=== PATIENT | female | born 1950 | race Caucasian/White ===

== ENCOUNTER 2017-10-07 08:29 | Emergency (ER) | payer MEDICARE ==
[2017-10-07 09:03] VITALS: BP 149/77
--- NOTE | 2017-10-07 09:26 | ED ---
Respiratory - HPI Summary HPI Summary: Cough, congestion, sore throat for about a week. no hemoptysis or fever. Grandchildren have been sick. - History of Current Complaint Chief Complaint: UCRespiratory Stated Complaint: UPPER RESPITORY,COUGH,CHEST CONGESTION Time Seen by Provider: 10/07/17 08:41 Hx Obtained From: Patient Onset/Duration: Lasting Days, Still Present Timing: Constant Initial Severity: Mild Current Severity: Moderate Pain Intensity: 0 Character: Cough (Productive), Cough (Nonproductive) Sputum Amount: Scant Sputum Color: White Aggravating Factor(s): URI, Deep Breaths, Recumbent Position Alleviating Factor(s): Upright Position Associated Signs and Symptoms: URI, Nasal Congestion - Allergy/Home Medications Allergies/Adverse Reactions: Allergies Allergy/AdvReac Type Severity Reaction Status Date / Time diphenhydramine Allergy Severe HEART Verified 10/07/17 08:49 [From Exent] RACES, "BREATHING FIRE" Home Medications: Home Medications Calcium/Vitamin D TAB 250/125* [Oscal D TAB 250/125*] 2 tab PO DAILY 10/07/17 [ History Confirmed 10/07/17] PMH/Surg Hx/FS Hx/Imm Hx Previously Healthy: No Endocrine/Hematology History: Reports: Hx Thyroid Disease - Hypothyroidism - Surgical History Surgery Procedure, Year, and Place: , 1973, [facility] Infectious Disease History: No Infectious Disease History: Denies: Traveled Outside the [place] in Last 30 Days - Family History Known Family History: Positive: Other - Grandchildren have been sick with bronchitis and pneumonia. - Social History Lives: With Family Alcohol Use: None Substance Use Type: Reports: None Smoking Status (MU): Never Smoked Tobacco Review of Systems Positive: Sore Throat Positive: Cough All Other Systems Reviewed And Are Negative: Yes Physical Exam Triage Information Reviewed: Yes Vital Signs On Initial Exam: Initial Vitals Temp Pulse Resp BP Pulse Ox 99.4 F 94 20 149/77 97 10/07/17 08:53 10/07/17 08:53 10/07/17 08:53 10/07/17 08:53 10/07/17 08:53 Vital Signs Reviewed: Yes Appearance: Positive: Well-Appearing, No Pain Distress, Well-Nourished Skin: Positive: Warm, Dry Eyes: Positive: Normal, EOMI, Conjunctiva Clear. Negative: Conjunctiva Inflammed ENT: Positive: Pharynx normal, Pharyngeal erythema, Nasal congestion, TM bulging , Sinus tenderness. Negative: TM dull, TM red, Tonsillar swelling, Tonsillar exudate, Trismus, Uvula midline Neck: Positive: Supple, Nontender, No Lymphadenopathy Respiratory/Lung Sounds: Positive: Clear to Auscultation, Breath Sounds Present. Negative: Decreased Breath Sounds, Rales, Rhonchi, Subcutaneous Emphysema, Stridor, Tracheal Deviation, Wheezes, Unable to speak in full sentences Cardiovascular: Positive: RRR, Pulses are Symmetrical in both Upper and Lower Extremities. Negative: Murmur Abdomen Description: Positive: No Organomegaly, Soft. Negative: Distended, Guarding Musculoskeletal: Positive: Normal, Strength/ROM Intact Neurological: Positive: Normal, Sensory/Motor Intact, Alert, Oriented to Person Place, Time, CN Intact II-III Psychiatric: Positive: Normal, Affect/Mood Appropriate. Negative: Anxious Diagnostics - Vital Signs Vital Signs Temp Pulse Resp BP Pulse Ox 10/07/17 08:53 99.4 F 94 20 149/77 97 - Laboratory Lab Statement: Any lab studies that have been ordered have been reviewed, and results considered in the medical decision making process. Disposition - Differential Dx - Cardiopulmonary Differential Diagnoses - Cardiopulmonary: Bronchitis - Diagnoses Provider Diagnoses: Viral bronchitis Discharge - Sign-Out/Discharge Documenting (check all that apply): Patient Departure - Discharge Plan Condition: Good Disposition: HOME Prescriptions: Acetaminop/Codeine 30 MG TAB* [Tylenol/Codeine 30 MG TAB*] 1 tab PO BEDTIME PRN #5 tab MDD 1 PRN Reason: Cough Azithromyxin KORIN (NF) [Z-Korin (Zithromax) 250 mg tabs #6] 2 tab PO .TODAY, THEN 1 DAILY #6 tab Benzonatate CAP* [Tessalon 100 MG CAP*] 100 mg PO TID #20 cap Patient Education Materials: Upper Respiratory Infection (ED) Referrals: Jamey Haynes MD [Primary Care Provider] - If Needed - Billing Disposition and Condition Condition: GOOD Disposition: Home
== END 2017-10-07 09:40 | disposition home or self-care (01) ==
LOC: UCCORT 08:29
DX: J20.8 Acute bronchitis due to other specified organisms (principal); Z88.8 Allergy status to other drugs, medicaments and biological substances
CPT/HCPCS: 99211; G0463

== ENCOUNTER 2018-08-04 16:38 | Emergency (ER) | payer MEDICARE ==
[2018-08-04 16:53] VITALS: BP 144/69
--- NOTE | 2018-08-04 17:15 | UC ---
Respiratory Complaint HPI - HPI Summary HPI Summary: C/O cough and congestion x 2-3 days. Now having bilateral ear pain, right > left. Now getting coughing fits. - History of Current Complaint Chief Complaint: UCGeneralIllness Stated Complaint: COUGH,EARS Hx Obtained From: Patient Onset/Duration: Sudden Onset, Lasting Days - 3, Worse Since - today Timing: Constant Severity Initially: Mild Severity Currently: Moderate Pain Intensity: 7 Character: Cough: Nonproductive Alleviating Factors: Nothing Associated Signs And Symptoms: Positive: URI, Nasal Congestion - Allergies/Home Medications Allergies/Adverse Reactions: Allergies Allergy/AdvReac Type Severity Reaction Status Date / Time diphenhydramine Allergy Severe HEART Verified 08/04/18 16:53 [From Benadryl] RACES, "BREATHING FIRE" Home Medications: Home Medications Ibuprofen TAB* [Advil TAB*] 200 mg PO Q8H PRN 08/04/18 [History Confirmed ] PMH/Surg Hx/FS Hx/Imm Hx Endocrine History: Hypothyroidism - Surgical History Surgical History: Yes Surgery Procedure, Year, and Place: , 1973, [place] - Family History Known Family History: Positive: Diabetes, Other - Grandchildren have been sick with bronchitis and pneumonia. - Social History Occupation: Retired Lives: With Family Alcohol Use: None Substance Use Type: None Smoking Status (MU): Never Smoked Tobacco Household Exposure Type: Cigarettes - Immunization History Most Recent Influenza Vaccination: FALL 2013 Review of Systems All Other Systems Reviewed And Are Negative: Yes Constitutional: Positive: Fever ENT: Positive: Sore Throat, Ear Ache, Nasal Discharge Respiratory: Positive: Cough Physical Exam Triage Information Reviewed: Yes Appearance: Ill-Appearing, Pain Distress - mild, Obese Vital Signs: Initial Vital Signs Temp 98.2 F 08/04/18 16:50 Pulse 82 08/04/18 16:50 Resp 18 08/04/18 16:50 BP 144/69 08/04/18 16:50 Pulse Ox 97 08/04/18 16:50 Vital Signs Reviewed: Yes Eyes: Positive: Conjunctiva Clear ENT: Positive: Pharynx normal, Nasal congestion, TM bulging - AU, AD> with serous effusions Neck exam: Normal Respiratory: Positive: Wheezing - expiratory wheezing with cough Cardiovascular Exam: Normal Cardiovascular: Positive: RRR, No Murmur Musculoskeletal Exam: Normal Neurological Exam: Normal Psychological Exam: Normal Skin Exam: Normal Respiratory Course/Dx - Differential Dx/Diagnosis Differential Diagnosis/HQI/PQRI: Asthma, Lower Resp Infection, Sinusitis Provider Diagnosis: Upper respiratory infection with cough and congestion, Bilateral serous otitis media, Bronchospasm, acute Discharge - Sign-Out/Discharge Documenting (check all that apply): Patient Departure All imaging exams completed and their final reports reviewed: No Studies - Discharge Plan Condition: Stable Disposition: HOME Prescriptions: Amoxicillin PO (*) [Amoxicillin 875 MG (*)] 875 mg PO BID #20 tab predniSONE TAB* [Deltasone 20 MG TAB*] 60 mg PO DAILY #18 tab Patient Education Materials: Upper Respiratory Infection (ED), Bronchospasm (ED ), Prednisone (By mouth), Serous Otitis Media (ED) Referrals: Jamey Haynes MD [Primary Care Provider] - Additional Instructions: NASAL SPRAYS AND DROPS: Afrin in the PUMP/ MIST bottle (Get generic 12 hours nasal decongestant spray). Tilt your head down and look at the floor while doing a strong sniff with the spray. Decongestant nasal sprays and drops often give dramatic relief from congestion. They are often recommended for patients with sinus infection to assist with sinus drainage. Persons with high blood pressure should consult the doctor before using these nasal sprays. Afrin and Onel-Synephrine are common [id number] preparations. They should not be used for more than five days, as "rebound" congestion can occur - - the congestion flares as the drug wears off. A way of dealing with this rebound congestion problem is to medicate only one nostril each time, allowing the other nostril to recover from the medicine' s effects. When you no longer need the drug during the day, spray only one nostril each night. This helps you sleep well without severe rebound congestion. Call the doctor if you develop severe headache, palpitations, or chest pain. DO NOT FILL THE AMOXICILLIN UNLESS YOU GET WORSENING FEVERS/ CHILLS WITH THE EAR PAIN. WARM PACKS FOR THE EAR PAIN WELL. - Billing Disposition and Condition Condition: STABLE Disposition: Home
== END 2018-08-04 17:35 | disposition home or self-care (01) ==
LOC: UCCORT 16:38
DX: J06.9 Acute upper respiratory infection, unspecified (principal); H65.93 Unspecified nonsuppurative otitis media, bilateral; J20.9 Acute bronchitis, unspecified; Z77.22 Contact with and (suspected) exposure to environmental tobacco smoke (acute) (chronic)
CPT/HCPCS: 99212; G0463

== ENCOUNTER 2018-09-18 08:15 | Emergency (ER) | payer MEDICARE ==
[2018-09-18 08:34] VITALS: BP 150/73
--- NOTE | 2018-09-18 09:36 | UC ---
Respiratory Complaint HPI - HPI Summary HPI Summary: 68 yo female with cough x 4 weeks or more no fever occasionally productive hoarse sore throat at times - History of Current Complaint Chief Complaint: UCGeneralIllness Stated Complaint: CONGESTION, ST Time Seen by Provider: 09/18/18 08:59 Hx Obtained From: Patient Onset/Duration: Sudden Onset, Lasting Weeks Timing: Constant Severity Initially: Mild Severity Currently: Moderate Pain Intensity: 0 Pain Scale Used: 0-10 Numeric Character: Cough: Nonproductive Aggravating Factors: Nothing Alleviating Factors: Nothing Associated Signs And Symptoms: Positive: Hoarseness - Allergies/Home Medications Allergies/Adverse Reactions: Allergies Allergy/AdvReac Type Severity Reaction Status Date / Time diphenhydramine Allergy Severe HEART Verified 08/04/18 16:53 [From Benadryl] RACES, "BREATHING FIRE" prednisone Allergy Rash Verified 09/18/18 08:35 PMH/Surg Hx/FS Hx/Imm Hx Previously Healthy: Yes - Surgical History Surgical History: Yes Surgery Procedure, Year, and Place: , 1973, [place] - Family History Known Family History: Positive: Diabetes, Other - Grandchildren have been sick with bronchitis and pneumonia. - Social History Alcohol Use: None Substance Use Type: None Smoking Status (MU): Never Smoked Tobacco Household Exposure Type: Cigarettes - Immunization History Most Recent Influenza Vaccination: FALL 2013 Review of Systems All Other Systems Reviewed And Are Negative: Yes Constitutional: Positive: Negative Skin: Positive: Negative Eyes: Positive: Negative ENT: Positive: Sore Throat Respiratory: Positive: Cough Cardiovascular: Positive: Negative Gastrointestinal: Positive: Negative Genitourinary: Positive: Negative Motor: Positive: Negative Neurovascular: Positive: Negative Musculoskeletal: Positive: Negative Neurological: Positive: Negative Psychological: Positive: Negative Physical Exam Triage Information Reviewed: Yes Appearance: Well-Appearing, No Pain Distress, Well-Nourished Vital Signs: Initial Vital Signs Temp 98.2 F 09/18/18 08:30 Pulse 75 09/18/18 08:30 Resp 16 09/18/18 08:30 BP 150/73 09/18/18 08:30 Pulse Ox 95 09/18/18 08:30 Vital Signs Reviewed: Yes Eyes: Positive: Conjunctiva Clear ENT: Positive: Hearing grossly normal, Nasal congestion, TMs normal, Tonsillar swelling. Negative: Pharyngeal erythema, Nasal drainage, Tonsillar exudate, Hoarse voice, Dental tenderness, Sinus tenderness, Uvula midline Neck: Positive: Supple, Nontender, No Lymphadenopathy Respiratory: Positive: Lungs clear, Normal breath sounds, No respiratory distress, No accessory muscle use Cardiovascular: Positive: RRR, No Murmur Musculoskeletal: Positive: ROM Intact, No Edema Neurological: Positive: Alert Psychological Exam: Normal Skin Exam: Normal Diagnostics - Radiology No standard instances Radiology Interpretation Completed By: Radiologist Summary of Radiographic Findings: CXR (-) Respiratory Course/Dx - Differential Dx/Diagnosis Provider Diagnosis: Bronchitis, Enlarged tonsils, Hoarse Discharge - Sign-Out/Discharge Documenting (check all that apply): Patient Departure All imaging exams completed and their final reports reviewed: No Studies - Discharge Plan Condition: Stable Disposition: HOME Prescriptions: Amoxicillin PO (*) [Amoxicillin 875 MG (*)] 875 mg PO BID #14 tab Patient Education Materials: Acute Bronchitis (ED) Referrals: Jamey Haynes MD [Primary Care Provider] - 1 Week (if cough not better) Rudolph Michelle MD [Medical Doctor] - (recheck next week...ask for [place] appt) Additional Instructions: because of your hoarseness and enlarged tonsils I suggest you see and ENT specialist - Billing Disposition and Condition Condition: STABLE Disposition: Home
== END 2018-09-18 10:15 | disposition home or self-care (01) ==
LOC: UCCORT 08:15
DX: J40 Bronchitis, not specified as acute or chronic (principal); J35.1 Hypertrophy of tonsils; R49.0 Dysphonia; Z77.22 Contact with and (suspected) exposure to environmental tobacco smoke (acute) (chronic)
CPT/HCPCS: 71046; 87651; 99212; G0463